=== PATIENT | female | born 1975 | race Caucasian/White ===

== ENCOUNTER → 2016-11-26 | Outpatient (CLI) | payer OTHER ==
--- NOTE | 2016-11-26 18:14 | RAD ---
EXAM DESCRIPTION: Fingers,Right CLINICAL HISTORY: 41 years, Female, FINGER PAIN COMPARISON: FINDINGS: Total five views obtained of 2nd and 3rd digits. No fracture or dislocation seen. Electronically signed by: Laci Osorio MD 11/26/2016 6:13 PM CDT
== END | disposition home or self-care (01) ==
LOC: LAB.O 12:02
PROVIDERS: ATTEND Nurse Practitioner Family
DX: M10.9 Gout, unspecified (principal); M79.644 Pain in right finger(s)

== ENCOUNTER → 2018-05-27 | Outpatient (CLI) | payer OTHER ==
--- NOTE | 2018-05-28 09:07 | US ---
EXAM DESCRIPTION: Breast,Right: Ultrasound CLINICAL HISTORY: 42 yearsFemaleBREAST LUMP COMPARISON: Diagnostic bilateral digital breast tomosynthesis on the same visit. TECHNIQUE: Transcutaneous scanning of the right breast utilizing jeffery-scale and Doppler modes. Scanning performed by the tracer clerk and Dr. Dave. FINDINGS: Scanning of the posterior right breast at 1:00, palpable region. Mostly fatty echotexture. Minimally inhomogeneous echogenic subcutaneous mass measuring 10.4 x 13.7 x 6.7 mm and not vascular. No abnormal dominant solid mass or distinct cyst. No parenchymal edema or large calcifications. No overlying skin changes. Normal vascularity. Probable lipoma or subcutaneous gland, will circumscribed. IMPRESSION: 1. Bi-Rads Category 2: Benign. 2. Please refer to diagnostic bilateral digital breast tomosynthesis examination and report on the same visit. The FINDINGS and the FOLLOW-UP plan were reviewed in person with the patient after the examination. Written communication explaining the IMPRESSION and FOLLOW-UP will be mailed to the patient and referring care provider. Electronically signed by: David Dave MD 05/28/2018 9:04 AM [facility]
--- NOTE | 2018-05-28 20:44 | MAM ---
EXAM DESCRIPTION: 3D Diagnostic, Bilateral: Digital Mammography CLINICAL HISTORY: 42 yearsFemaleUNSPECIFIED LUMP IN THE RIGHT BREAST, UPPER INNER QUADRANT . Palpable nodule posterior right breast at the chest wall. Near the midline of the breast. Tender. No personal history of breast cancer. Remote family history of breast cancer. Childbirth. Hysterectomy. Currently on HRT. Lifetime risk of developing breast cancer (Tyrer-Cuzick model) percentage is 10.0 COMPARISON: Targeted right breast ultrasound included with this examination... TECHNIQUE: Bilateral LM, CC, and MLO projection full-field images, digital mammographic tomosynthesis technique. Bilateral 2-D digital full-field MLO images. CAD not utilized. FINDINGS: The breast parenchymal density pattern is: Scattered areas of fibroglandular density. No skin thickening or nipple retraction . Skin marker corresponding to palpable abnormality on the posterior right upper breast near the midline and overlapping the right pectoral muscle. No mammographic abnormality was seen. Right axillary lymph node. No focal, stellate mass or density, focal asymmetry , and no suspicious microcalcifications bilaterally. ULTRASOUND: Scanning of the posterior right breast at 1:00, palpable region. Mostly fatty echotexture. Minimally inhomogeneous echogenic subcutaneous mass measuring 10.4 x 13.7 x 6.7 mm and not vascular. No abnormal dominant solid mass or distinct cyst. No parenchymal edema or large calcifications. No overlying skin changes. Normal vascularity. Probable lipoma or subcutaneous gland, circumscribed margins. IMPRESSION: Benign exam. BIRAD CATEGORY: 2 BENIGN FINDINGS. RECOMMENDATIONS: FOLLOW UP: Routine digital bilateral mammographic screening, one year interval from May 2018. Written communication explaining the IMPRESSION and follow-up, will be mailed to the patient and referring health care provider. According to the [employer], yearly mammograms are recommended starting at age 40 and continuing as long as a woman is in good health. Any breast change noted on a breast self-exam should be reported promptly to the patient's healthcare provider. Breast MRI is recommended for women with an approximately 20-25% or greater lifetime risk of breast cancer, including women with a strong family history of breast or ovarian cancer and women who have been treated for Hodgkin's disease. A negative mammographic report should not delay tissue diagnosis in patients with significant clinical history or physical findings. Extremely dense breast tissue limits the sensitivity of digital mammography. Electronically signed by: David Dave MD 05/28/2018 8:41 PM [facility]
== END ==
LOC: MAMMO 08:55
PROVIDERS: ATTEND Nurse Practitioner Family
DX: N63.12 Unspecified lump in the right breast, upper inner quadrant (principal)
CPT/HCPCS: 76641; 77066; G0279